=== PATIENT | male | born 1945 | race Two or more races ===

== ENCOUNTER 2025-01-20 01:38 | Emergency (ER) | payer OTHER ==
[~2025-01-20] VITALS: Ht 167.6 cm; Wt 78.0 kg
[2025-01-20 02:20] VITALS: BP 132/65; PULSE 80; RESP 14; TEMP 97.9; O2SAT 95
[2025-01-20] MEDS: FLUCONAZOLE 100 MG TAB PO ONE (02:48)
--- NOTE | 2025-01-20 02:48 | DVH ---
Bilateral lower extremity venous duplex Clinical History: BLE swelling pain Comparison: US BILAT LOW EXT ART DUPLEX on DOS: 07/25/22, US BILAT LOWER DVT on DOS: 07/19/22 Technique: Duplex Doppler evaluation of the deep venous systems of both lower extremities from the common femora l veins to the popliteal veins including color Doppler and spectral/pulsed waveform analysis was perf ormed. Findings: RIGHT SIDE: The common femoral vein demonstrates appropriate compressibility and waveform variability. There is compressibility/patency of the great saphenous vein at the proximal thigh. The femoral vein demonstrates appropriate compressibility and waveform variability. The deep femoral vein demonstrates appropriate compressibility and waveform variability. The popliteal vein demonstrates appropriate compressibility and waveform variability. There is normal compressibility at the tibioperoneal trunk. LEFT SIDE: The common femoral vein demonstrates appropriate compressibility and waveform variability. There is compressibility/patency of the great saphenous vein at the proximal thigh. The femoral vein demonstrates appropriate compressibility and waveform variability. The deep femoral vein demonstrates appropriate compressibility and waveform variability. The popliteal vein demonstrates appropriate compressibility and waveform variability. There is normal compressibility at the tibioperoneal trunk. Impression: 1. No right or left femoropopliteal venous thrombosis.
[2025-01-20] MEDS: HYDROcodone-ACET 10/325MG TAB PO ONE (02:49)
[2025-01-20] MEDS: CEPHALEXIN 250 MG CAP PO ONE (02:49)
--- NOTE | 2025-01-20 02:50 | ED.PDOC ---
Musculoskeletal HPI Comments 79-year-old male brought in by daughter complains of bilateral leg swelling for years but became more painful and a little more swollen over the last couple of days. Also some swelling to his foreskin area for last few days as well Chief Complaint: Lower Extremity Time Seen by MD: 01:59 Reviewed Notes: Nurses Notes Allergies: Coded Allergies: NO KNOWN ALLERGIES (Unverified , 01/20/25) Home Meds Active Scripts Elastic Bandages & Supports (Futuro Sheer Support Hose) Sheer Mis, UNITS XX DAILY, #10 Prov:ROE GALAVIZ MD 01/20/25 Bacitracin (Bacitracin Oint) 1 Applic Ap, 1 APPLIC TOP BID for 10 Days, #1 APPLIC Prov:ROE GALAVIZ MD 01/20/25 Fluconazole (Diflucan) 150 Mg Tab, 1 TAB PO ONCE for 5 Days, #5 TAB 1 Refill Prov:ROE GALAVIZ MD 01/20/25 Gabapentin (Once-Daily) (Gabapentin) 300 Mg Tab, 300 MG PO Q6HP PRN, #90 TAB Prov:ROE GALAVIZ MD 01/20/25 Information Source: Patient, Relative Mode of Arrival: Ambulatory Pain: Moderate Symptoms: Swelling, Pain Past Medical History Past Medical History (Other): Venous stasis dermatitis Social History Smoker: Non-Smoker Alcohol: Rarely Drugs: Denies Drug Use Constitutional: reports: fatigue, malaise Musculoskeletal: reports: others (Bilateral leg swelling and pain) Integumetry: reports: rash, wounds, others (Venous stasis dermatitis changes bilateral legs below the knees) All Other Systems: Reviewed and Negative Physical Exam Exam Comments Elderly General Appearance: Moderate Distress HEENT: Normal ENT Inspection, Pharynx Normal, TMs Normal Neck: Full Range of Motion, Non-Tender, Normal, Normal Inspection Respiratory: Chest Non-Tender, Lungs Clear, No Accessory Muscle Use, No Respir atory Distress, Normal Breath Sounds Cardiovascular: No Edema, No JVD, No Murmur, No Gallop, Normal Peripheral Pulses, Regular Rate/Rhythm Breast Exam: Deferred Gastrointestinal: No Organomegaly, Non Tender, No Pulsatile Mass, Normal Bowel Sounds, Soft Genitalia: Deferred Pelvic: Deferred Rectal: Deferred Extremities: Leg edema, Swelling, Other (Venous stasis dermatitis bilateral legs below the knees) Musculoskeletal : Apperance: Normal Neurologic: Alert, vocational examiner II-XII nml as Tested, No Motor Deficits, Normal Affect, Normal Mood, No Sensory Deficits Cerebellar Function: Normal Reflexes: Normal Skin: Other (Bilateral lower extremity venous stasis dermatitis) Lymphatic: No Adenopathy Was a procedure done? Was a procedure done?: No Differential Diagnosis EXT Differential Diagnosis: Cellulitis, CHF, Deep Vein Thrombosis, Compartment Syndrome, Fracture, Sprain, Dislocation, Neurovascular injury, Arthritis, Bursitis X-Ray, Labs, Meds, VS Vital Signs Date Time Temp Pulse Resp B/P (MAP) Pulse Ox O2 Delivery O2 Flow Rate FiO2 01/20/25 02:20 97.9 80 14 132/65 (87) 95 97.9 01/20/25 02:16 Room Air* 0 21 01/20/25 01:39 97.8 87 18 134/64 94 97.8 Current Medications Medications (Trade) Dose Ordered Sig/[place] Route Start Time Stop Time Status Last Admin Acetaminophen/ Hydrocodone Bitart ([place] 10/325MG Tab) 1 tab ONCE ONCE PO 01/20/25 02:45 01/20/25 02:46 DC 01/20/25 02:49 Fluconazole (Diflucan Tablet) 200 mg ONCE ONCE PO 01/20/25 02:45 01/20/25 02:46 DC 01/20/25 02:48 Cephalexin (Keflex Capsule) 500 mg ONCE ONCE PO 01/20/25 02:45 01/20/25 02:46 DC 01/20/25 02:49 Time of 1ST Reevaluation: 02:00 Reevaluation 1ST: Unchanged Patient Education/Counseling: Diagnosis, Treatment Family Education/Counseling: Diagnosis, Treatment Departure 1 Departure Time of Disposition: 04:00 Impression: Primary Impression: Venous stasis dermatitis Additional Impressions: Venous stasis dermatitis of both lower extremities Balanitis Disposition: 01 HOME / SELF CARE / HOMELESS Condition: Stable e-Prescriptions Elastic Bandages & Supports (Futuro Sheer Support Hose) Sheer Mis UNITS XX DAILY, #10 Prov: ROE GALAVIZ MD 01/20/25 Bacitracin (Bacitracin Oint) 1 Applic Ap 1 APPLIC TOP BID for 10 Days, #1 APPLIC Prov: ROE GALAVIZ MD 01/20/25 Fluconazole (Diflucan) 150 Mg Tab 1 TAB PO ONCE for 5 Days, #5 TAB 1 Refill Prov: ROE GALAVIZ MD 01/20/25 Gabapentin (Once-Daily) (Gabapentin) 300 Mg Tab 300 MG PO Q6HP PRN, #90 TAB Prov: ROE GALAVIZ MD 01/20/25 Discharged With: Self Critical Care Note Critical Care Time?: No Stability Stability form required: No Heart Score Heart Score: Heart Score Response (Comments) Value History N/A 0 EKG N/A 0 Age N/A 0 Risk Factors N/A 0 Troponin N/A 0 Total 0 ROE GALAVIZ MD Jan 20, 2025 02:50
[2025-01-20] MEDS ORDERED: FLUC150T38 PO (03:23)
[2025-01-20] MEDS ORDERED: BAC09TP TOP (03:23)
[2025-01-20] MEDS ORDERED: GABA300T4 PO (03:23)
[2025-01-20] MEDS ORDERED: ELAS-110 XX (03:24)
== END 2025-01-20 03:34 | disposition home or self-care (01) ==
LOC: ER 01:38
DX: I87.2 Venous insufficiency (chronic) (peripheral) (principal); N48.1 Balanitis; Z79.899 Other long term (current) drug therapy
CPT/HCPCS: 93970